=== PATIENT | female | born 1995 | race Native Hawaiian/Other Pacific Islander ===

== ENCOUNTER 2018-07-21 08:48 | Outpatient (CLI) | payer OTHER | END 2018-07-21 20:42 | disposition home or self-care (01) | LOC: SMI 08:48 | PROVIDERS: ATTEND Orthopaedic Surgery | DX: S89.91XA Unspecified injury of right lower leg, initial encounter (principal); S89.92XA Unspecified injury of left lower leg, initial encounter; R60.0 Localized edema; X58.XXXA Exposure to other specified factors, initial encounter; Y93.89 Activity, other specified; Y92.89 Other specified places as the place of occurrence of the external cause; Y99.8 Other external cause status | CPT/HCPCS: 73721 ==

== ENCOUNTER 2020-08-18 19:17 | Emergency (ER) | payer BC, OTHER ==
[~2020-08-18] VITALS: Ht 165.1 cm; Wt 68.0 kg
[2020-08-18 19:23] VITALS: BP_SYST 131
--- NOTE | 2020-08-18 19:25 | NUR ---
Pt placed to ER bed 07. Report given to JOHANNA Casarez.
--- NOTE | 2020-08-18 19:30 | NUR ---
PT PRESENTS FROM HOME WITH C/O BILATERAL HIP PAIN STARTING LAST NIGHT THAT RADIATES DOWN TO LOWER LEGS. REPORTS HX OF CHRONIC PAIN AND OVARIAN CYSTS. AAOX4, V/S STABLE
--- NOTE | 2020-08-18 19:33 | NUR ---
ER DR. WHITTEN AT THE BEDSIDE EVALUATING PT
--- NOTE | 2020-08-18 20:04 | NUR ---
Patient given written and verbal discharge instructions and verbalizes understanding. ER MD discussed with patient the results and treatment provided. Patient in stable condition. ID arm band removed. Rx of ROBAXIN AND TRAMADOL given. Patient educated on pain management and to follow up with PMD. Pain Scale 5/10. Opportunity for questions provided and answered. Medication side effect fact sheet provided.
[2020-08-18 20:05] VITALS: BP_SYST 131
== END 2020-08-18 20:05 | disposition home or self-care (01) ==
LOC: SED 19:17
DX: S76.812A Strain of other specified muscles, fascia and tendons at thigh level, left thigh, initial encounter (principal); S76.811A Strain of other specified muscles, fascia and tendons at thigh level, right thigh, initial encounter; M79.652 Pain in left thigh; M79.651 Pain in right thigh; X50.1XXA Overexertion from prolonged static or awkward postures, initial encounter; Y93.89 Activity, other specified; Y92.89 Other specified places as the place of occurrence of the external cause; Y99.8 Other external cause status
CPT/HCPCS: 99283